=== PATIENT | female | born 1975 | race Caucasian/White ===

== ENCOUNTER → 2020-09-19 | Outpatient (CLI) | payer BC, MEDICAID ==
[~2020-09-19] MED LIST: AMOX1TAB12 PO; AMOX1TAB64 PO; Calcium
== END | disposition home or self-care (01) ==
LOC: CFH 11:07
PROVIDERS: ATTEND Family Medicine
DX: R31.0 Gross hematuria (principal); R30.0 Dysuria; M54.9 Dorsalgia, unspecified
CPT/HCPCS: 74176